=== PATIENT | male | born 1950 | race Caucasian/White ===

== ENCOUNTER 2017-01-02 10:03 | Emergency (ER) | payer MEDICARE ==
[~2017-01-02 10:03] MED LIST: ALEVE220 M4 PO; ALEVE220 MG; AMBIEN CR12.5 MG/BO; AMBIEN10 MG; AUGMENTIN 875-1 EAC2 PO; CALCIUM 500 WIT1 TAB; CARAFATE1 G/10 ML; CIPRO500 MG; CIPRO750 MG PO; CLARITIN10 MG; CLINDAMYCIN HC300 M2 PO; CYCLOBENZAPRINE10 M1 PO; CYCLOBENZAPRINE5 M1 PO; DESYREL100 MG; DOCUSATE SODIU100 MG; FISH OIL 1,0001 EAC8 PO; FISH OIL PO; FLAGYL250 MG; FLAGYL500 MG PO; GABAPENTIN300 M1 PO; H; HYDROCHLOROTHIA25 M1 PO; KEFLEX500 MG; LACTULOSE10 G/15 ML; LEVEMIR100 UNITS/ SC; LOPRESSOR100 M1 PO; LOPRESSOR50 M1 PO; LORTAB 10/500 T1 TAB; MONISTAT; MULTIVITAMIN1 CAP; MULTIVITAMINS1 EAC6 PO; NEURONTIN300 MG; NORCO 7.5/325 T1 TAB PO; NYSTATIN15 G1 TP; OMEGA 31 CAP; OMEPRAZOLE20 M4 PO; OXYCODONE HCL10 MG; PRED FORTE1 ML OP; PREDNISONE10 M1 PO; PRILOSEC OTC20 MG; PROAIR HFA8.5 GM INH; PROTONIX40 MG; RITALIN LA40 MG; STOOL SOFTENER100 M2 PO; STOOL SOFTENER100 MG; SYMBICORT 160-1 PUFF INH; TOBRAMYCIN-DEXAM5 M2 OP; TOPAMAX; TOPAMAX50 MG; TOPROL XL100 MG; TRAZODONE HCL150 M1 PO; TRAZODONE100 MG; VALTREX1000 M1 PO; WARFARIN SODIUM3 M2 PO; WELLBUTRIN SR100 MG; WELLBUTRIN XL150 M1 PO; WELLBUTRIN XL150 MG; WELLBUTRIN XL300 M3 PO; WELLBUTRIN XL300 MG; [UNRECOGNIZED DRUG - OTHER]; [UNRECOGNIZED DRUG - OTHER] PO; [UNRECOGNIZED DRUG - REMARK]
== END 2017-01-02 12:53 ==
LOC: EDMED 10:03
DX: S90.822A Blister (nonthermal), left foot, initial encounter (principal); I48.91 Unspecified atrial fibrillation; E11.9 Type 2 diabetes mellitus without complications; E66.9 Obesity, unspecified; Z79.01 Long term (current) use of anticoagulants; Z87.891 Personal history of nicotine dependence; X58.XXXA Exposure to other specified factors, initial encounter